=== PATIENT | male | born 1950 | race Caucasian/White ===

== ENCOUNTER 2017-06-20 13:22 | Day surgery (SDC) | payer MEDICARE ==
[~2017-06-20] VITALS: Ht 182.9 cm; Wt 87.4 kg
[2017-06-20 14:26] VITALS: Ht 182.9 cm; Wt 87.4 kg
[2017-06-20] MEDS ORDERED: ATORVASTATIN (14:26)
[2017-06-20] MEDS ORDERED: BENAZEPRIL (14:26)
[2017-06-20] MEDS ORDERED: ASPIRIN (14:26)
[2017-06-20] MEDS ORDERED: HCTZ (14:26)
[2017-06-20 14:42] VITALS: BP 123/68; PULSE 64; RESP 24
[2017-06-20] MEDS ORDERED: LIDOCAINE 2% (SDV) 5 ML INJ ONE (14:46)
[2017-06-20] MEDS ORDERED: PROPOFOL 60 ML ONE (14:46)
--- NOTE | 2017-06-20 15:27 | OPPN ---
Date/Time of Note Date/Time of Note DATE: 06/20/17 TIME: 15:26 Operative Report Preoperative Diagnosis Screening colonoscopy Postoperative Diagnosis Sigmoid polyps Operation/Procedure Performed Colonoscopy biopsy and polypectomy Anesthesia Type: MAC Estimated blood loss: none Transfusion Required: no Specimens Sigmoid polyps Complications: no CHRISTOPHER HEARD MD Jun 20, 2017 15:27
[2017-06-20 15:50] VITALS: BP 132/64; RESP 20
--- NOTE | 2017-06-20 16:45 | GILP ---
DATE OF PROCEDURE: 06/20/2017 PROCEDURE PERFORMED: Colonoscopy with biopsy and polypectomy. SURGEON: Moriah Burnham MD. PREOPERATIVE DIAGNOSIS: 1. Screening colonoscopy. 2. History of colon polyps. POSTOP DIAGNOSES: 1. Colonoscopy all the way to the cecum. 2. The patient had 3 sigmoid colon polyps and one of them was removed using the snare and electrocautery the other 2 with biopsy forceps. 3. Diverticulosis of the colon. 4. Internal hemorrhoids. INDICATION: Mr. Samir Stauffer is a 67-year-old male patient who had a history of colon polyps. The patient needed a screening colonoscopy. The procedure and possible complications were well explained to the patient. He understood and consented to the procedure. DESCRIPTION OF PROCEDURE: Under influence of anesthesia, the colonoscope was carefully introduced in the rectum. Under direct vision it was advanced all the way to the cecum. FINDINGS: The patient had 3 sigmoid colon polyps and one of them was removed using the snare and electrocautery, the other 2 with biopsy forceps. He was noted to have diverticulosis of the colon as well as internal hemorrhoids. He tolerated the procedure very well. There was no complication from the procedure. At the end of procedure he was awake with stable vital signs. He was discharged home in care of his family. IMPRESSION: Please see postop diagnoses. PLAN: 1. Await histopathology report. 2. Next screening colonoscopy in 5 years. Dictated By: MD SAGE [place]/raffaele/v[place] /Document#: [id number]
== END 2017-06-20 17:18 | disposition home or self-care (01) ==
LOC: GIL 13:22
PROVIDERS: ATTEND Internal Medicine Gastroenterology
DX: Z12.11 Encounter for screening for malignant neoplasm of colon (principal); K63.5 Polyp of colon; K57.90 Diverticulosis of intestine, part unspecified, without perforation or abscess without bleeding; K64.8 Other hemorrhoids; I10 Essential (primary) hypertension; E78.5 Hyperlipidemia, unspecified; E66.9 Obesity, unspecified; Z68.26 Body mass index [BMI] 26.0-26.9, adult
CPT/HCPCS: 88305